=== PATIENT | male | born 1975 | race Caucasian/White ===

== ENCOUNTER 2022-10-11 07:44 | Emergency (ER) | payer MEDICAID, SELFPAY ==
[2022-10-11 07:51] VITALS: BP 152/87; PULSE 93; RESP 16; TEMP 37.1; O2SAT 96; BMI 20.5
[2022-10-11 08:23] VITALS: BP 132/86; PULSE 98; O2SAT 96
[2022-10-11 08:25] LABS: Basophils # 0.1 10^3/uL (0.0-0.1); Basophils % 0.6 %; Eosinophils # 0.1 10^3/uL (0.0-0.8); Eosinophils % 1.3 %; Hematocrit 46.1 % (42.0-52.0); Hemoglobin 14.6 g/dL (11.7-16.6); Lymphocytes # 2.6 10^3/uL (0.8-4.8); Lymphocytes % 24.7 %; Mean Corpuscular HGB Conc 31.7 g/dL (30.0-36.0); Mean Corpuscular Volume 94.9 fl (80-94); Mean Platelet Volume 9.5 fL (7.4-10.4); Monocytes # 0.9 10^3/uL (0.2-0.9); Monocytes % 9.1 %; Neutrophils # 6.62 10^3/uL (1.8-7.7); Nucleated Red Blood Cells % 0 %; Platelet Count 345 10^3/cmm (130-400); Red Blood Count 4.86 10^6/uL (4.1-5.3); Red Cell Distribution Width 14.3 % (12.1-15.1); White Blood Count 10.3 10^3/uL (4.0-10.0)
[2022-10-11 08:37] LABS: Specific Gravity, Urine 1.015 (1.005-1.030); Urine Appearance Cloudy (CLEAR); Urine Color Yellow (Yellow); pH Urine 5 (5-7)
[2022-10-11 08:38] LABS: Add Urine Culture? Yes; Add Urine Microscopic? YES; Bacteria Urine 2+ /hpf; Bilirubin Urine Neg (Negative); Blood Urine 3+ (Negative); Glucose Urine UA Norm (Normal); Ketones Urine 1+ (Negative); Leukocyte Esterase Urine 2+ (Negative); Nitrate Urine Positive (Negative); Protein Urine 1+ (Negative); RBC Urine 25-40 /hpf (0-2); Squamous Epithelial Cell Urine 0-4 /hpf (0-5); Urobilinogen Urine Norm (Negative); WBC Urine 40-55 /hpf (0-5)
--- NOTE | 2022-10-11 08:39 | W.ED.MALEGU ---
HPI - Male Genitourinary General: Chief complaint: Urogenital-Male Stated complaint: urinary Time Seen by Provider: 10/11/22 07:46 Source: patient Mode of arrival: ambulatory History of Present Illness: 47-year-old male presents to the emergency room with complaints of difficulty with urination. He was hospitalized at [facility] recently with diverticulitis from his description of things it sounds like they were concerned about a potential colorectal fistula. He states they put a catheter and they put dye in the catheter they put [id number] to leave via enema and gave IV dye to evaluate. He was discharged home with a catheter in place this was about 3 weeks ago. He has noticed a few small flecks of blood and some sediment in the catheter. He was supposed to follow-up with urology which was not completed because the urologist he was referred to closed his practice. He also has noticed a little bit of drainage at the meatus from around the catheter. No fever sweats chills no flank pain. No abdominal pain. Location: penis Severity: moderate Relieving factors: none Exacerbating factors: none Associated symptoms: Reports discharge; Deny dysuria, fevers/chills, hematuria, nausea, rash, swelling, urinary incontinence, urinary retention, mass or vomiting Review of Systems Const: Denies: fever(s), chills, body aches, change in appetite, fatigue or malaise ENMT: Denies: throat pain, ear or mastoid pain, nasal discharge or nasal congestion Card: Denies: chest pain, edema, dyspnea on exertion or orthopnea Resp: Denies: dyspnea, productive cough or non-productive cough GI: Denies: nausea or vomiting : Denies: dysuria, urinary incontinence or hematuria Skin/Breast: Denies: rash or pruritus [facility] ED PFSH: Medical History (Updated 10/11/22 @ 11:29 by Brad Mir DO) Diverticulitis Physical Exam Const: COMMON NORMALS: no acute distress GENERAL APPEARANCE: cooperative and comfortable ORIENTATION/CONSCIOUSNESS: Yes awake, Yes oriented to person, Yes oriented to place and Yes oriented to time HENMT: COMMON NORMALS: normocephalic, atraumatic and hearing grossly normal bilaterally HEAD & SCALP: normocephalic and atraumatic Resp: COMMON NORMALS: normal respiratory effort, No retractions, No use of accessory muscles and clear to auscultation bilaterally AUSCULTATION: clear to auscultation bilaterally Cardio: COMMON NORMALS: regular rate, regular rhythm and No murmurs present (Cardio) RATE: regular rate RHYTHM: regular rhythm GI: COMMON NORMALS: Soft to palpation and No hepatosplenomegaly present AUSCULTATION: Yes normoactive bowel sounds PALPATION: Yes Soft to palpation, No Tenderness to palpation present (GI), No Guarding due to palpation present (GI) and Yes No hepatosplenomegaly present Extremity: COMMON NORMALS: normal to inspection, capillary refill normal, no clubbing, cyanosis or edema, no calf tenderness and no pedal edema Neuro: SENSORIUM/ORIENTATION: Yes oriented to person, Yes oriented to place and Yes oriented to time Skin: COMMON NORMALS: no rashes or lesions noted GENERAL SKIN EXAM: no rashes or lesions noted Course Vital Signs: Vital signs: Vital Signs Temperature 98.8 F 10/11/22 07:51 Pulse Rate 76 10/11/22 11:00 Respiratory Rate 16 10/11/22 07:51 Blood Pressure 121/81 10/11/22 11:00 Pulse Oximetry 94 10/11/22 11:00 Oxygen Delivery Me thod Room Air 10/11/22 08:23 MDM - Male Medical Decision Making Labs reviewed. Does have a mild UTI. We will get records from [place]. The Pak was placed to decompress the bladder and lessen risk of developing colovesical fistula while the patient had acute diverticulitis. He has no signs or symptoms of diverticulitis at this time. We will go ahead and remove the Pak start him on oral antibiotics reviewed lab findings with the patient as well as my review of the old records. Patient discharged to follow-up with primary care in the next week return if has further problems. I also reviewed the urine culture done at [place] was susceptible to ciprofloxacin. Medical Records I reviewed the patient's medical records. Lab Data I reviewed the patient's lab results. 10/11/22 08:14 10/11/22 08:14 Laboratory Results WBC 10.3 10^3/uL (4.0-10.0) H 10/11/22 08:14 RBC 4.86 10^6/uL (4.1-5.3) 10/11/22 08:14 Hgb 14.6 g/dL (11.7-16.6) 10/11/22 08:14 Hct 46.1 % (42.0-52.0) 10/11/22 08:14 MCV 94.9 fl (80-94) H 10/11/22 08:14 MCH 30.0 pg (28.0-34.0) 10/11/22 08:14 MCHC 31.7 g/dL (30.0-36.0) 10/11/22 08:14 RDW 14.3 % (12.1-15.1) 10/11/22 08:14 Plt Count 345 10^3/cmm (130-400) 10/11/22 08:14 MPV 9.5 fL (7.4-10.4) 10/11/22 08:14 Neut % (Auto) 64.0 % 10/11/22 08:14 Lymph % (Auto) 24.7 % 10/11/22 08:14 [place] % (Auto) 9.1 % 10/11/22 08:14 Eos % (Auto) 1.3 % 10/11/22 08:14 Baso % (Auto) 0.6 % 10/11/22 08:14 Neut # (Auto) 6.62 10^3/uL (1.8-7.7) 10/11/22 08:14 Lymph # (Auto) 2.6 10^3/uL (0.8-4.8) 10/11/22 08:14 [place] # (Auto) 0.9 10^3/uL (0.2-0.9) 10/11/22 08:14 Eos # (Auto) 0.1 10^3/uL (0.0-0.8) 10/11/22 08:14 Baso # (Auto) 0.1 10^3/uL (0.0-0.1) 10/11/22 08:14 Nucleated RBC % (auto) 0 % 10/11/22 08:14 Nucleated RBCs # 0.0 /100WBC 10/11/22 08:14 Sodium 138 mmol/L (136-145) 10/11/22 08:14 Potassium 4.0 mmol/L (3.5-5.1) 10/11/22 08:14 Chloride 103 mmol/L (98-107) 10/11/22 08:14 Carbon Dioxide 24 mmol/L (22-29) 10/11/22 08:14 Anion Gap 15.0 (5-19) 10/11/22 08:14 BUN 15 mg/dL (6-20) 10/11/22 08:14 Creatinine 0.8 mg/dL (0.7-1.2) 10/11/22 08:14 GFR Calculation 102.7 mL/min (90-130) 10/11/22 08:14 Glucose 92 mg/dL (65-115) 10/11/22 08:14 Calculated Osmolality 286 mOsm/kg (285-295) 10/11/22 08:14 Calcium 8.7 mg/dL (8.5-10.5) 10/11/22 08:14 Total Bilirubin 0.2 mg/dL (0.15-1.2) 10/11/22 08:14 AST 13 U/L (0-40) 10/11/22 08:14 ALT 16 U/L (0-41) 10/11/22 08:14 Alkaline Phosphatase 92 U/L (40-130) 10/11/22 08:14 Total Protein 7.4 g/dL (6.6-8.7) 10/11/22 08:14 Albumin 3.2 g/dL (3.5-5.2) L 10/11/22 08:14 Globulin 4.2 g/dL (1.3-4.6) 10/11/22 08:14 Urine Color Yellow (Yellow) 10/11/22 08:10 Urine Appearance Cloudy (CLEAR) A 10/11/22 08:10 Urine pH 5 (5-7) 10/11/22 08:10 Ur Specific [place] 1.015 (1.005-1.030) 10/11/22 08:10 Urine Protein 1+ (Negative) H 10/11/22 08:10 Urine Glucose (UA) Norm (Normal) 10/11/22 08:10 Urine Ketones 1+ (Negative) H 10/11/22 08:10 Urine Blood 3+ (Negative) H 10/11/22 08:10 Urine Nitrate Positive (Negative) H 10/11/22 08:10 Urine Bilirubin Neg (Negative) 10/11/22 08:10 Urine Urobilinogen Norm mg/dL (Negative) 10/11/22 08:10 Ur Leukocyte Esterase 2+ (Negative) H 10/11/22 08:10 Urine RBC 25-40 /hpf (0-2) H 10/11/22 08:10 Urine WBC 40-55 /hpf (0-5) H 10/11/22 08:10 Ur Squamous Epith Cells 0-4 /hpf (0-5) H 10/11/22 08:10 Amorphous Sediment Not Reportable 10/11/22 08:10 Urine Bacteria 2+ /hpf (NONE) H 10/11/22 08:10 Discharge Plan Discharge Patient Disposition: Home Clinical Impression: Urinary tract infection Condition: Stable Prescriptions: New Cipro 500 mg tablet 500 mg PO BID Qty: 14 0RF No Action albuterol sulfate 90 mcg/actuation Hfa Aerosol Inhaler 2 puff INHALATION Q6H PRN (Reason: Shortness Of Breath) Discharge Orders: Discharge ED (Routine); Ordered 10/11/22 Ordered By: Brad Mir Referrals: Ricky Ward MD [Primary Care Provider] - Discharge Diet: Usual diet Discharge Activity: Increase activity as tolerated Patient Instructions: Opioid Safety, Pain Management Activity Restrictions/Additional Instructions: You were seen today for catheter issues. We reviewed your records from [place] they had placed the catheter as a precautionary to prevent potential complications with your diverticulitis. At this point the catheter can be removed. Do recommend you start oral antibiotics we reviewed the previous urine culture done at [place] for initial antibiotic selection and we will culture the urine today to confirm. Follow-up with your doctor within the next 1 to 2 weeks return if you are unable to urinate or have further problems. Coding Level of Care Code ED Sourcer for Lynn Anton
[2022-10-11 08:46] LABS: Albumin Level 3.2 g/dL (3.5-5.2); Alkaline Phosphatase 92 U/L (40-130); Blood Urea Nitrogen 15 mg/dL (6-20); Calcium 8.7 mg/dL (8.5-10.5); Carbon Dioxide 24 mmol/L (22-29); Chloride 103 mmol/L (98-107); Globulin 4.2 g/dL (1.3-4.6); Glomerular Filtration Rate 102.7 mL/min (90-130); Glucose 92 mg/dL (65-115); Osmolality Calculated 286 mOsm/kg (285-295); Sodium 138 mmol/L (136-145); Total Bilirubin 0.2 mg/dL (0.15-1.2); Total Protein 7.4 g/dL (6.6-8.7)
[2022-10-11 08:53] LABS: Alanine Aminotransferase 16 U/L (0-41); Aspartate Amino Transferase 13 U/L (0-40)
[2022-10-11 10:00] VITALS: BP 122/82; PULSE 84; O2SAT 93
[2022-10-11 10:30] VITALS: BP 124/80; PULSE 87; O2SAT 95
[2022-10-11 11:00] VITALS: BP 121/81; PULSE 76; O2SAT 94
--- NOTE | 2022-10-11 11:38 | PC.NURSE ---
REMOVED [place] CATH PER PHYSICIAN ORDER. PT TOLERATED WELL.
== END 2022-10-11 11:40 | disposition home or self-care (01) ==
PROVIDERS: Emergency Provider Family Medicine; PCP Family Medicine
DX: N39.0 Urinary tract infection, site not specified (principal)
CPT/HCPCS: 36415; 80053; 81001; 85025; 87077; 87086; 87186; 99283